=== PATIENT | male | born 1960 | race Hispanic/Latino ===

== ENCOUNTER 2018-05-08 07:58 | Emergency (ER) | payer BC ==
--- NOTE | 2018-05-08 08:30 | ER ---
Nurse's Notes [facility] Name: Dea Drake Age: 58 yrs Sex: Male : 1960 Arrival Date: 05/08/2018 Time: 08:02 Bed 20 Private MD: Diagnosis: Cellulitis to right leg, left upper arm and back Presentation: 05/08 08:03 Presenting complaint: Patient states: per park interpreter: i have ticks from the cows and got infected, it is on my R lower leg; i noticed it 3 weeks ago; reports itchiness and numbness; denies fever and chills; took Tylenol last night [employer];. Transition of care: patient was not received from another setting of care. Onset of symptoms was May 08, 2018. Risk Assessment: Do you want to hurt yourself or someone else? Patient reports no desire to harm self or others. Initial Sepsis Screen: Does the patient meet any 2 criteria? No. Patient's initial sepsis screen is negative. Does the patient have a suspected source of infection? No. Patient's initial sepsis screen is negative. Care prior to arrival: None. 08:03 Method Of Arrival: Ambulatory 08:03 Acuity: TONY 4 hj Triage Assessment: 08:08 General: Appears in no apparent distress. uncomfortable, Behavior is calm, cooperative, hj appropriate for age. 08:10 Pain: Complains of pain in right leg Pain currently is 7 out of 10 on a pain scale. Historical: - Allergies: 08:07 No Known Allergies; hj - Home Meds: 08:07 None [Active]; hj - PMHx: 08:07 None; - PSHx: 08:07 None; hj - Immunization history:: Adult Immunizations not up to date. - Social history:: Smoking status: Patient/guardian denies using tobacco, Patient uses alcohol. - Ebola Screening: : Patient negative for fever greater than or equal to 101.5 degrees Fahrenheit, and additional compatible Ebola Virus Disease symptoms Patient denies exposure to infectious person Patient denies travel to an Ebola-affected area in the 21 days before illness onset. Screenin:08 Abuse screen: Denies threats or abuse. Denies injuries from another. Nutritional hj screening: No deficits noted. Tuberculosis screening: No symptoms or risk factors identified. Fall Risk None identified. Assessment: 08:15 General: Appears in no apparent distress. comfortable, Behavior is calm, cooperative, bp appropriate for age. Pain: Complains of pain in back, right leg and left leg Quality of pain is described as stinging. Neuro: Level of Consciousness is awake, alert, obeys commands, confused, Oriented to person, place, time, situation, Appropriate for age. Cardiovascular: No deficits noted. Respiratory: Airway is patent Respiratory effort is even, unlabored, Respiratory pattern is regular, symmetrical. GI: No signs and/or symptoms were reported involving the gastrointestinal system. : No signs and/or symptoms were reported regarding the genitourinary system. EENT: No deficits noted. Derm: Reports itching. Musculoskeletal: Circulation, motion, and sensation intact. Range of motion: intact in all extremities. 08:39 Reassessment: PT D/C HOME AMBULATORY WITH FAMILY, DX WITH CELLULITIS. bp Vital Signs: 08:08 BP 134 / 93; Pulse 69; Resp 18; Temp 97.9(O); Pulse Ox 100% on R/A; Weight 68.04 kg; hj Height 5 ft. 3 in. (160.02 cm); Pain 0/10; 08:08 Body Mass Index 26.57 (68.04 kg, 160.02 cm) ED Course: 08:02 Patient arrived in ED. hj 08:06 Triage completed. hj 08:08 Arm band placed on left wrist. hj 08:08 Patient has correct armband on for positive identification. Bed in low position. Call hj light in reach. Side rails up X 1. 08:11 Kiko Hauser, BRIGITTE is Primary Nurse. bp 08:15 Angel Perez MD is Attending Physician. kdr 08:39 No provider procedures requiring assistance completed. Patient did not have IV access bp during this emergency room visit. Administered Medications: 08:38 Drug: Bactrim (160 mg-800 mg (DS) 1 tablet Route: PO; bp 08:38 Follow up: Response: Medication administered at discharge. bp 08:38 Drug: Clindamycin 300 mg Route: PO; bp 08:38 Follow up: Response: Medication administered at discharge. bp Outcome: 08:30 Discharge ordered by . kdr 08:39 Discharged to home ambulatory, with family. bp 08:39 Condition: stable 08:39 Discharge instructions given to patient, Instructed on discharge instructions, follow up and referral plans. medication usage, Demonstrated understanding of instructions, follow-up care, medications, Prescriptions given X 3. 08:40 Patient left the ED. bp Signatures: Angel Perez MD MD kdr Caleb Maza, RN RN Kiko Howard RN RN bp Corrections: (The following items were deleted from the chart) 08:10 08:08 Pulse 69bpm; Resp 18bpm; Pulse Ox 100% RA; Temp 97.9F Oral; 68.04 kg; Height 5 hj ft. 3 in.; BMI: 26.5; Pain 0/10; hj 08:11 08:08 General: Appears in no apparent distress. uncomfortable, Behavior is calm, hj cooperative, appropriate for age, hj : 08:08 Pain: Denies pain. hj
--- NOTE | 2018-05-08 08:31 | EDPHYS ---
Physician Documentation [facility] Name: Dea Drake Age: 58 yrs Sex: Male : 1960 Arrival Date: 05/08/2018 Time: 08:02 Bed 20 Private MD: ED Physician Angel Perez HPI: 05/08 08:24 This 58 yrs old Male presents to ER via Ambulatory with complaints of kdr cellulitis to legs and back. 08:24 The patient presents with cellulitis of the left subscapular area, left bicep and kdr medial aspect of right calf. Description: The affected area is small, moderate sized, irregular, well demarcated, erythematous, warm. Onset: The symptoms/episode began/occurred gradually, 3 week(s) ago. Possible cause(s): Thinks that it may be related to insect/tick bites spread from cows. Associated signs and symptoms: The patient has no apparent associated signs or symptoms. Modifying factors: the symptoms are alleviated by nothing, the symptoms are aggravated by touching. Severity of symptoms: At their worst the symptoms were mild, in the emergency department the symptoms are unchanged. The patient has not experienced similar symptoms in the past. The patient has not recently seen a physician. Historical: - Allergies: 08:07 No Known Allergies; hj - Home Meds: 08:07 None [Active]; hj - PMHx: 08:07 None; hj - PSHx: 08:07 None; hj - Immunization history:: Adult Immunizations not up to date. - Social history:: Smoking status: Patient/guardian denies using tobacco, Patient uses alcohol. - Ebola Screening: : Patient negative for fever greater than or equal to 101.5 degrees Fahrenheit, and additional compatible Ebola Virus Disease symptoms Patient denies exposure to infectious person Patient denies travel to an Ebola-affected area in the 21 days before illness onset. ROS: 08:24 Constitutional: Negative for fever, chills, and weight loss, Eyes: Negative for injury, kdr pain, redness, and discharge, Neck: Negative for injury, pain, and swelling, Cardiovascular: Negative for chest pain, palpitations, and edema, Respiratory: Negative for shortness of breath, cough, wheezing, and pleuritic chest pain, Abdomen/GI: Negative for abdominal pain, nausea, vomiting, diarrhea, and constipation, Back: Negative for injury and pain. 08:24 Skin: Positive for cellulitis, To right leg, upper left arm and back. Exam: 08:24 Constitutional: This is a well developed, well nourished patient who is awake, alert, kdr and in no acute distress. 08:24 Skin: cellulitis, that is mild, on the left subscapular area, left bicep and medial aspect of left calf, induration, that is mild is noted. Vital Signs: 08:08 BP 134 / 93; Pulse 69; Resp 18; Temp 97.9(O); Pulse Ox 100% on R/A; Weight 68.04 kg; hj Height 5 ft. 3 in. (160.02 cm); Pain 0/10; 08:08 Body Mass Index 26.57 (68.04 kg, 160.02 cm) hj MDM: 08:24 Data reviewed: vital signs, nurses notes. Counseling: I had a detailed discussion with kdr the patient and/or guardian regarding: the historical points, exam findings, and any diagnostic results supporting the discharge/admit diagnosis, the need for outpatient follow up. Special discussion: I discussed with the patient/guardian in detail that at this point there is no indication for admission to the hospital. It is understood, however, that if the symptoms persist or worsen the patient needs to return immediately for re-evaluation. 08:30 Patient medically screened. kdr Administered Medications: 08:38 Drug: Bactrim (160 mg-800 mg (DS) 1 tablet Route: PO; bp 08:38 Follow up: Response: Medication administered at discharge. bp 08:38 Drug: Clindamycin 300 mg Route: PO; bp 08:38 Follow up: Response: Medication administered at discharge. bp Disposition: 05/08/18 08:30 Discharged to Home. Impression: Cellulitis to right leg, left upper arm and back. - Condition is Stable. - Discharge Instructions: Cellulitis, Adult, [id number]. - Prescriptions for Clindamycin HCl 300 mg Oral Capsule - take 1 capsule by ORAL route every 6 hours for 10 days; 40 capsule. Tramadol 50 mg Oral Tablet - take 1 tablet by ORAL route every 8 hours as needed; 12 tablet. Bactrim DS 800- 160 mg Oral Tablet - take 1 tablet by ORAL route every 12 hours for 10 days; 20 tablet. - Medication Reconciliation Form, Thank You Letter, Antibiotic Education form. - Follow up: Private Physician; When: 2 - 3 days; Reason: If symptoms return, Further diagnostic work-up, Recheck today's complaints, Continuance of care, Re-evaluation by your physician. - Problem is an ongoing problem. - Symptoms are unchanged. Signatures: Angel Perez MD MD [facility] Caleb Maza RN RN Kiko Hauser RN RN bp Corrections: (The following items were deleted from the chart) 08:40 08:30 05/08/2018 08:30 Discharged to Home. Impression: Cellulitis to right leg, left bp upper arm and back. Condition is Stable. Forms are Medication Reconciliation Form, Thank You Letter, Antibiotic Education, Prescription Opioid Use. Follow up: Private Physician; When: 2 - 3 days; Reason: If symptoms return, Further diagnostic work-up, Recheck today's complaints, Continuance of care, Re-evaluation by your physician. Problem is an ongoing problem. Symptoms are unchanged. kdr
[2018-05-08] MEDS ORDERED: SMZ./TMP. 800/160 MG TABLET ONE (08:44)
[2018-05-08] MEDS ORDERED: CLINDAMYCIN HCL 150 MG CAP ONE (08:44)
== END 2018-05-08 08:40 | disposition home or self-care (01) ==
LOC: ER 07:58
DX: L03.115 Cellulitis of right lower limb (principal); L03.114 Cellulitis of left upper limb; L03.312 Cellulitis of back [any part except buttock and flank]
CPT/HCPCS: 99283